=== PATIENT | female | born 1965 | race Caucasian/White ===

== ENCOUNTER → 2016-03-09 | Outpatient (CLI) | payer BC ==
[~2016-03-09] MED LIST: ALBU1.257 NEB; AZEL0.15 NAE; CEPH500C2 PO; CETI10TA84 PO; CLR10 PO; COLE625T PO; CYAN3INJ SC; CYNI1000 IM; CZR50 PO; DICY20TA35 PO; ERGO1CAP35 PO; ERGO500011 PO; FERR1TAB23 PO; FERR325T5 PO; FLUT0.0529 NAE; FLUT0.15 NAE; IBUP-1428 PO; IMT100 PO; LOSA50TA6 PO; LXP/20 PO; MOME100A INH; MOME200A INH; MONT1TAB3 PO; MONT1TAB5 PO; OMEP40CA41 PO; ONDA4TAB46 PO; PANT40TA PO; POTA20TA13 PO; POTA20TA16 PO; RANI1TAB75 PO; SERT50TA PO; SUMA100T16 PO; TRIATAB3 PO; VNTHFA/IN INH; VTMD PO; WLC625 PO
[2016-03-09 14:17] LABS: BLOOD UREA NITROGEN 11 mg/dl (7-18); BUN/CREATININE RATIO 14.5 (10-20); CALCIUM 8.7 mg/dl (8.5-10.1); CARBON DIOXIDE 29 mmol/L (21-32); CHLORIDE 107 mmol/L (98-107); CREATININE 0.79 mg/dl (0.60-1.20); GLUCOSE 94 mg/dl (70-99); PHOSPHORUS 2.6 mg/dl (2.5-4.9); POTASSIUM 4.2 mmol/L (3.5-5.1); SODIUM 144 mmol/L (136-145)
[2016-03-09 14:25] LABS: FERRITIN 43.2 ng/ml (8.0-388.0); TOTAL IRON BINDING CAPACITY 292 mcg/dl (250-450)
[2016-03-09 15:04] LABS: INFLUENZA A PCR Neg for Influ A (NEG); INFLUENZA B PCR Neg for Influ B (NEG)
== END | disposition home or self-care (01) ==
LOC: C.LABBC 09:45
PROVIDERS: ATTEND Family Medicine
DX: I10 Essential (primary) hypertension (principal); E87.6 Hypokalemia; E55.9 Vitamin D deficiency, unspecified; D50.9 Iron deficiency anemia, unspecified; R50.9 Fever, unspecified; R53.81 Other malaise

== ENCOUNTER 2016-04-30 14:40 | Emergency (ER) | payer OTHER, BC ==
[~2016-04-30] VITALS: Ht 170.2 cm; Wt 84.4 kg
[~2016-04-30 14:40] MED LIST changes: -ALBU1.257 NEB; -AZEL0.15 NAE; -CEPH500C2 PO; -COLE625T PO; -CYNI1000 IM; -CZR50 PO; -DICY20TA35 PO; -ERGO500011 PO; -FERR1TAB23 PO; -FERR325T5 PO; -FLUT0.15 NAE; -IMT100 PO; -LOSA50TA6 PO; -LXP/20 PO; -MOME200A INH; -OMEP40CA41 PO; -POTA20TA13 PO; -POTA20TA16 PO; -RANI1TAB75 PO; -SERT50TA PO; -TRIATAB3 PO; -VNTHFA/IN INH; -VTMD PO
[2016-04-30 14:43] VITALS: TEMP 37.4; Ht 170.2 cm; Wt 84.4 kg
[2016-04-30] MEDS ORDERED: CEPH500C2 PO (15:10)
[2016-04-30] MEDS ORDERED: CYNI1000 IM (15:20)
[2016-04-30] MEDS ORDERED: TRIATAB3 PO (15:20)
[2016-04-30] MEDS ORDERED: VNTHFA/IN INH (15:20)
[2016-04-30] MEDS ORDERED: OMEP40CA41 PO (15:20)
[2016-04-30] MEDS ORDERED: FERR1TAB23 PO (15:20)
[2016-04-30] MEDS ORDERED: POTA20TA13 PO (15:20)
[2016-04-30] MEDS ORDERED: LXP/20 PO (15:20)
[2016-04-30] MEDS ORDERED: CZR50 PO (15:20)
[2016-04-30] MEDS ORDERED: VTMD PO (15:20)
[2016-04-30] MEDS ORDERED: IMT100 PO (15:20)
[2016-04-30 15:35] VITALS: BP 139/97; PULSE 77; O2SAT 95
--- NOTE | 2016-05-03 06:58 | EMERGENCY ROOM VISIT NOTE ---
ED Visit Note First contact with patient: 14:53 Chief Complaint: Right thumb laceration. History of Present Illness: Ms. Houston is a 50-year-old white female who ambulates into the ED complaining of a laceration to the right thumb. Patient reports approximately 24 hours ago she was at work and sustained a laceration from a wire dish rack. She reports she immediately cleaned the wound with soap and water and control bleeding. She reports she originally thought the wound might need cyst is but decided not to come to the hospital. She comes today for some mild increase in pain and some redness around her laceration. The laceration is over the posterior aspect of the thumb over the proximal phalanxes. She describes her pain as a mild achy sensation and stinging sensation. She rates her discomfort 3/10. Her pain is nonradiating. Her pain worsens with palpation and extension of the thumb. She has not identified any alleviating factors related to the pain. She has not taken any medications for pain prior to arrival at the hospital. Associated with her pain she reports she noted a small amount of pus like drainage earlier today and some increasing redness and swelling around the laceration. She denies fevers, chills, sweats, other skin eruptions, other skin color changes, left thumb weakness/numbness/tingling. Review of Systems: As noted above in history of present illness. Past Medical History: Hypertension, asthma, bronchitis, pneumonia, GERD, gallbladder disease. Current Medications: Medications Dose Route/Sig Max Daily Dose Days Date Category Dose Instructions Iron (Ferrous Sulfate) 325 Mg Tab 325 Mg PO DAILY 04/30/16 Reported Cyanocobalamin 1,000 Mcg/Ml Inj 1,000 Mcg IM MONTHLY 04/30/16 Reported Potassium Chloride Er (Potassium Chloride Microencaps) 20 Meq Tab 20 Meq PO BID 04/30/16 Reported Ventolin Hfa (Albuterol) 200 Puffs/91950 Mcg Aers 2 Puffs INH UD PRN 04/30/16 Reported Imitrex (Sumatriptan Succinate) 100 Mg Tab 100 Mg PO UD PRN 04/30/16 Reported TAKE ONLY MD DIRECTS Prilosec (Omeprazole) 40 Mg Cap 40 Mg PO BID PRN 04/30/16 Reported Vitamin D (Ergocalciferol) 50,000 Interunit Cap 50,000 Inter.unit PO WK 04/30/16 Reported TAKE THIS MEDICATION ONCE WEEKLY ON TUESDAY Escitalopram Oxalate 20 Mg Tab 20 Mg PO DAILY 04/30/16 Reported Losartan Potassium 50 Mg Tab 50 Mg PO DAILY 04/30/16 Reported Triamterene/Hctz 37.5-25MG (Triamterene/HCTZ) 1 Tab Tab 1 Tab PO DAILY 04/30/16 Reported Allergies to Medications: Patient denies. Social History: Patient is currently employed; she feels safe in her home environment; she denies tobacco use and admits to alcohol use. Tetanus Immunization Status: 2013. Physical Examination: Vital Signs: Date Time Temp Pulse Resp B/P Pulse Ox O2 Delivery O2 Flow Rate FiO2 04/30/16 15:35 77 14 139/97 95 04/30/16 14:43 37.4 80 18 158/94 94 Room Air GENERAL: 50-year-old female in mild distress due to pain, nontoxic-appearing, afebrile and hemodynamically stable. NEUROLOGICAL: Awake, alert and oriented to person, place and time. Answering questions appropriately and following commands. SKIN: Warm, dry and pink. Right Thumb: Superficial thickness laceration measuring approximately 1.9 cm over the posterior aspect of the thumb involving the interphalangeal joint and proximal phalange. Surrounding the wound is mild erythema and edema consistent with infection. The skin does not appear cellulitic. It is warm to the touch as well as tender to the touch. No lymphangitis. RIGHT THUMB: Please note SKIN above. No gross bony deformity. No tenderness of the MCP joint. Mild tenderness over the interphalangeal joint because of her laceration infection. Full range of motion all movements of the thumb at the MCP and interphalangeal joint. Throughout the rest of the thumb the skin was warm and pink and capillary refill is brisk. She is able to distinguish light sensations through all dermatomes. ED Course: Patient is assessed as noted above. Patient's wound was cleansed with antibacterial soap and covered with bacitracin dressing. Patient was offered pain medications and refused. Patient thumb was placed in a thumb spica splint to reduce the pain with movement. Patient was educated about tonight's findings and instructed on her treatment plan; she verbalizes understanding and agreement with this plan. Clinical Impression: Laceration infection. Superficial wound laceration. Disposition: Patient discharged home in stable condition; prior to departure he was reassessed and subjectively reported she was feeling the same. Plan: Comfort measures, wound care, and worsening signs of infection were discussed with the patient. Patient was prescribed Keflex 500 mg 4 times a day for 10 days. Patient was encouraged to follow-up with Workmen's Compensation or return to the ED for worsening signs of infection, uncontrolled pain or any new/ concerning symptoms.
[2016-08-11] MEDS ORDERED: COLE625T PO (11:22)
[2016-08-11] MEDS ORDERED: LOSA50TA6 PO (11:22)
[2016-08-11] MEDS ORDERED: ERGO1CAP41 PO (11:22)
[2016-08-11] MEDS ORDERED: POTA20TA16 PO (11:22)
[2016-08-11] MEDS ORDERED: AZEL0.15 NAE (11:22)
[2016-08-11] MEDS ORDERED: FLUT0.15 NAE (11:22)
[2016-08-11] MEDS ORDERED: ALBU1.257 NEB (11:22)
[2016-08-11] MEDS ORDERED: RANI1TAB75 PO (11:22)
[2016-08-11] MEDS ORDERED: MOME200A INH (11:22)
[2016-08-11] MEDS ORDERED: VNTHFA/IN INH (11:22)
[2016-08-11] MEDS ORDERED: SERT50TA PO (11:22)
[2016-08-11] MEDS ORDERED: OMEP40CA41 PO (11:22)
[2016-08-11] MEDS ORDERED: FERR325T5 PO (11:22)
== END 2016-04-30 15:45 | disposition home or self-care (01) ==
LOC: C.EDB 14:41 → C.EDD 15:45
DX: S61.011A Laceration without foreign body of right thumb without damage to nail, initial encounter (principal); L08.9 Local infection of the skin and subcutaneous tissue, unspecified; W26.8XXA Contact with other sharp object(s), not elsewhere classified, initial encounter; I10 Essential (primary) hypertension; J45.909 Unspecified asthma, uncomplicated; Z87.01 Personal history of pneumonia (recurrent)

== ENCOUNTER → 2016-06-08 | Outpatient (CLI) | payer BC ==
[~2016-06-08] MED LIST changes: +ALBU1.257 NEB; +AZEL0.15 NAE; -CETI10TA84 PO; -CLR10 PO; +COLE625T PO; -CYAN3INJ SC; +CYNI1000 IM; +CZR50 PO; +DICY20TA35 PO; -ERGO1CAP35 PO; +ERGO500011 PO; +FERR1TAB23 PO; +FERR325T5 PO; -FLUT0.0529 NAE; +FLUT0.15 NAE; -IBUP-1428 PO; +IMT100 PO; +LOSA50TA6 PO; +LXP/20 PO; -MOME100A INH; +MOME200A INH; -MONT1TAB3 PO; -MONT1TAB5 PO; +OMEP40CA41 PO; -ONDA4TAB46 PO; -PANT40TA PO; +POTA20TA13 PO; +POTA20TA16 PO; +RANI1TAB75 PO; +SERT50TA PO; -SUMA100T16 PO; +TRIATAB3 PO; +VNTHFA/IN INH; +VTMD PO; -WLC625 PO
--- NOTE | 2016-06-08 12:17 | MAMMOGRAPHY REPORT ---
BILATERAL DIGITAL DIAGNOSTIC MAMMOGRAM TOMOSYNTHESIS WITH CAD AND TARGETED BILATERAL ULTRASOUND: 06/08 CLINICAL HISTORY: 50-year-old woman presents for follow-up in both breasts for probably benign ingrid s seen bilaterally. She is status post ultrasound-guided core needle biopsy of the dominant mass in the left breast which yielded a benign fibroadenoma. TECHNIQUE: Bilateral breast tomosynthesis in addition to standard 2D mammography was performed. Curr ent study was also evaluated with a Computer Aided Detection (CAD) system. COMPARISON: Comparison is made to exams dated: 11/17/2015 ultrasound, 11/17/2015 mammogram, 03/27/2015 mammogram, 03/27/2015 ultrasound biopsy, 03/14/2015 ultrasound, and 03/14/2015 mammogram - [facility]. BREAST COMPOSITION: The tissue of both breasts is heterogeneously dense, which may obscure small ma sses. FINDINGS: The parenchymal pattern is similar to prior exams. There are stable masses within each br east. There is a coarse benign popcorn calcification in the medial left breast. The dominant mass in the 12:00 left breast is stable in size measuring 17 x 15 x 11 mm, and contains an internal ribbo n-shaped metallic biopsy marker. The dominant mass in the upper outer quadrant of the right breast is best visualized on the tomosynthesis images measuring 12 x 15 x 14 mm, and has not significant ch anged in size comparing to the 03/14/2015 mammograms. No suspicious spiculated or irregular mass, a rchitectural distortion or cluster of suspicious microcalcifications is seen. Targeted ultrasound was performed in each breast with particular attention to the lateral left breas t, 2:30, 12:30, 9:00 and 10:00 axes of the right breast. In the right 12:30 breast, 2 cm from the n ipple, there is a mixed echogenicity parallel solid appearing mass measuring approximately 7.2 x 2.4 x 4.4 mm. In the 2:30 right breast, 3-4 cm from the nipple, there is a lobulated hypoechoic solid- appearing mass measuring 5.3 x 3.7 x 4.6 mm. In the 9:00 right breast, 2 cm from the nipple, anothe r lobulated circumscribed solid mass measures 4.9 x 3.3 x 6.3 mm. A hypoechoic solid mass in the 10 :00 right breast, 1 cm from the nipple, measures 12.1 x 8.9 x 16.3 mm. None of these masses have si gnificantly changed in size comparing to the prior ultrasound dated 11/17/2015. In the left 12:00 b reast, a hypoechoic solid mass with internal metallic biopsy marker is again identified, representin g the biopsy-proven fibroadenoma. In the 1:00 left breast, 2 cm from the nipple, there is a lobulat ed hypoechoic ovoid solid mass measuring 4.8 x 4.2 x 8.2 mm. A morphologically normal intramammary lymph node is seen in the 1:00 left breast approximately 12 cm from the nipple. IMPRESSION: ACR-BI-RADS CATEGORY 3: PROBABLY BENIGN, TARGETED ULTRASOUND ACR-BI-RADS CATEGORY 3: RI OBABLY BENIGN 1. There are multiple masses in the breasts which correlate with probable fibroadenomata on ultraso und. A morphologically normal intramammary lymph node is seen in the 1:00 far posterior left breast . All of the masses are stable mammographically dating back to 03/14/2015, therefore likely benign. However, another 12 month follow-up evaluation including bilateral diagnostic mammography and repe at targeted ultrasound is recommended to ensure at least 2 years of stability to confirm benignity. These results and recommendations were discussed with the patient at the time of the exam. She tent atively scheduled a follow-up appointment prior to leaving our department. Approximately 10% of breast cancers are not detected with mammography. A negative mammographic repor t should not delay biopsy if a clinically suggestive mass is present. Magda Ervin M.D. ay/:06/08/2016 09:15:53 Pharmaceutical Service Representative: Teresita Lopez, [facility] letter sent: Follow Up Recommended 3 BI-RADS Code: ACR-BI-RADS Category 3: Probably Benign Ultrasound BI-RADS: ACR-BI-RADS Category 3: P robably Benign
== END | disposition home or self-care (01) ==
LOC: C.MAMM 08:28
PROVIDERS: ATTEND Family Medicine
DX: N63 Unspecified lump in breast (principal)

== ENCOUNTER 2016-06-28 12:25 | Emergency (ER) | payer BC, OTHER ==
[~2016-06-28] VITALS: Ht 170.2 cm; Wt 82.0 kg
[~2016-06-28 12:25] MED LIST changes: -ALBU1.257 NEB; -AZEL0.15 NAE; -COLE625T PO; -DICY20TA35 PO; -ERGO500011 PO; -FERR325T5 PO; -FLUT0.15 NAE; -LOSA50TA6 PO; -MOME200A INH; -POTA20TA16 PO; -RANI1TAB75 PO; -SERT50TA PO
[2016-06-28 12:36] VITALS: TEMP 36.5; Ht 170.2 cm; Wt 82.0 kg
[2016-06-28] MEDS ORDERED: SODIUM CHLORIDE 0.9% 1000ML 1,000 ML IV ONE (12:45)
[2016-06-28] MEDS ORDERED: DICYCLOMINE HCL 10 MG CAP PO ONE (12:45)
--- NOTE | 2016-06-28 13:09 | EMERGENCY ROOM VISIT NOTE ---
History Report prepared by Luther: Maribell Palmer Under the Supervision of: Dr. Barerra Leger M.D. First contact with patient: 12:40 Chief Complaint: ABDOMINAL PAIN Stated Complaint: SEVERE STOMACH PAIN WITH BACK PAIN History of Present Illness The patient is a 50 year old female who presents to the Emergency Room with complaints of persistent diffuse abdominal pain that began this morning. She currently rates her discomfort as a 10/10 in severity. The patient states that she woke up with diffuse abdominal pain. She states that she has had pain like this in the past. The patient describes her discomfort as a contraction pain. She states that she was evaluated in the hospital for her pain. The patient notes a history of a cholecystectomy, hysterectomy, and a hiatal hernia repair. She states that she drinks alcohol occasionally, but denies any tobacco use. The patient denies any melena or hematochezia. She denies any history of diverticulitis or Crohn's Disease. The patient notes a history of anemia. Source of History: patient Onset: this morning Position: abdomen (diffuse) Symptom Intensity: 10/10 Quality: other (contraction) Timing: other (persistent) Review of Systems All systems have been listed, reviewed, and are negative other than those previously mentioned. Please see Additional Medical History Sheet. Past Medical & Surgical Medical Problems: (1) Abdominal pain (2) Anemia (3) Anxiety State Nos (4) Cholelithiases (5) Contusion of leg (6) COPD (chronic obstructive pulmonary disease) (7) COPD exacerbation (8) COPD exacerbation (9) Esophageal Reflux (10) Headache (11) Hypertension Nos (12) Hypokalemia (13) Hypomagnesemia (14) Left sided abdominal pain (15) Leiomyoma of uterus (16) Menorrhagia (17) Migraine Unspecified W/O Intractable Migraine (18) Spontaneous bruising Surgical Problems: (1) Hiatal hernia (2) Tubal Ligation Status Family History Cancer Social History Smoking Status: Current Every Day Smoker Alcohol Use: occasionally Marital Status: single Housing Status: lives alone Occupation Status: employed Current/Historical Medications Scheduled Cyanocobalamin (Cyanocobalamin), 1,000 MCG IM MONTHLY Ergocalciferol (Vitamin D), 50,000 INTER.UNIT PO WK Escitalopram Oxalate (Escitalopram Oxalate), 20 MG PO DAILY Ferrous Sulfate (Iron), 325 MG PO DAILY Losartan Potassium (Losartan Potassium), 50 MG PO DAILY Potassium Chloride Microencaps (Potassium Chloride Er), 20 MEQ PO BID Triamterene/Hctz (Triamterene/Hctz 37.5-25MG), 1 TAB PO DAILY Scheduled PRN Albuterol Hfa (Ventolin Hfa), 2 PUFFS INH UD PRN for SOB/Wheezing Omeprazole (Prilosec), 40 MG PO BID PRN for Aid Reflux Sumatriptan Succinate (Imitrex), 100 MG PO UD PRN for Migraine Allergies Coded Allergies: Molds & Smuts (Verified Allergy, Unknown, "+ SKIN TEST", 06/28/16) Physical Exam Vital Signs Date Time Temp Pulse Resp B/P Pulse Ox O2 Delivery O2 Flow Rate FiO2 06/28/16 15:01 72 122/95 98 06/28/16 14:12 69 06/28/16 13:56 74 16 148/99 100 Room Air 06/28/16 13:41 74 146/99 100 Room Air 06/28/16 13:21 98 Room Air 06/28/16 12:36 36.5 66 22 144/42 95 Room Air Physical Exam GENERAL: Patient awake, alert, oriented x 3. Patient follows commands. Patient appears to be in marked distress, writhing on the bed in pain. Patient does not appear toxic. Patient is adequately hydrated and well-nourished. SKIN: No erythema, pallor, cyanosis or rash HEENT: Normal head, pupils equal, reactive to light and accommodation. Neck: Without adenopathy, no neck vein distention. LUNGS: Clear to auscultation. No wheezes, no rales, no rhonchi. HEART: No murmurs. No gallops. No rubs ABDOMEN: Generalized tenderness, no point tenderness, no rebound, no guarding. No masses, no rebound, no hepatomegaly or splenomegaly. EXTREMITIES: No signs of trauma. No pedal or pretibial edema. No calf or thigh tenderness. NEUROLOGIC: Cranial nerves II-XII within normal limits. No gross motor sensory function deficits. Medical Decision & Procedures Laboratory Results 06/28/16 12:51 Red Blood Count 4.21, Mean Corpuscular Volume 95.0, Mean Corpuscular Hemoglobin 30.6, Mean Corpuscular Hemoglobin Concent 32.3, Mean Platelet Volume 10.3, Neutrophils (%) (Auto) 56.0, Lymphocytes (%) (Auto) 34.5, Monocytes (%) (Auto) 8.0, Eosinophils (%) (Auto) 1.1, Basophils (%) (Auto) 0.3, Neutrophils # (Auto) 4.90, Lymphocytes # (Auto) 3.02, Monocytes # (Auto) 0.70, Eosinophils # (Auto) 0.10, Basophils # (Auto) 0.03 06/28/16 12:51 Test 06/28/16 00:00 06/28/16 12:51 06/28/16 14:35 Urine Test NEG (NEG) White Blood Count 8.76 K/uL (4.8-10.8) Red Blood Count 4.21 M/uL (4.2-5.4) Hemoglobin 12.9 g/dL (12.0-16.0) Hematocrit 40.0 % (37-47) Mean Corpuscular Volume 95.0 fL (80-100) Mean Corpuscular Hemoglobin 30.6 pg (25-34) Mean Corpuscular Hemoglobin Concent 32.3 g/dl (32-36) Platelet Count 352 K/uL (130-400) Mean Platelet Volume 10.3 fL (7.4-10.4) Neutrophils (%) (Auto) 56.0 % Lymphocytes (%) (Auto) 34.5 % Monocytes (%) (Auto) 8.0 % Eosinophils (%) (Auto) 1.1 % Basophils (%) (Auto) 0.3 % Neutrophils # (Auto) 4.90 K/uL (1.4-6.5) Lymphocytes # (Auto) 3.02 K/uL (1.2-3.4) Monocytes # (Auto) 0.70 K/uL (0.11-0.59) Eosinophils # (Auto) 0.10 K/uL (0-0.5) Basophils # (Auto) 0.03 K/uL (0-0.2) RDW Standard Deviation 44.9 fL (36.4-46.3) RDW Coefficient of Variation 13.0 % (11.5-14.5) Immature Granulocyte % (Auto) 0.1 % Immature Granulocyte # (Auto) 0.01 K/uL (0.00-0.02) Anion Gap 6.0 mmol/L (3-11) Est Creatinine Clear Calc Drug Dose 82.4 ml/min Estimated GFR () 87.6 Estimated GFR (Non- 75.5 BUN/Creatinine Ratio 12.9 (10-20) Calcium Level 8.7 mg/dl (8.5-10.1) Total Bilirubin 0.2 mg/dl (0.2-1) Aspartate Amino Transf (AST/SGOT) 53 U/L (15-37) Alanine Aminotransferase (ALT/SGPT) 28 U/L (12-78) Alkaline Phosphatase 81 U/L (45-117) Total Protein 7.0 gm/dl (6.4-8.2) Albumin 3.4 gm/dl (3.4-5.0) Globulin 3.6 gm/dl (2.5-4.0) Albumin/Globulin Ratio 0.9 (0.9-2) Lipase 417 U/L (73-393) Chemistry Specimen Hemolysis Urine Color YELLOW Urine Appearance CLEAR (CLEAR) Urine pH 6.5 (4.5-7.5) Urine Specific [place] 1.016 (1.000-1.030) Urine Protein NEG (NEG) Urine Glucose (UA) NEG (NEG) Urine Ketones NEG (NEG) Urine Occult Blood NEG (NEG) Urine Nitrite NEG (NEG) Urine Bilirubin NEG (NEG) Urine Urobilinogen NEG (NEG) Urine Leukocyte Esterase NEG (NEG) Laboratory results as stated above per my review. Medications Administered Medications (Trade) Dose Ordered Sig/Robinson Route Start Time Stop Time Status Last Admin Dose Admin Sodium Chloride (Nss 1000ml) 1,000 ml @ 1,000 mls/hr Q1H ONCE IV 06/28/16 12:45 06/28/16 13:44 DC 06/28/16 12:45 1,000 MLS/HR Dicyclomine HCl (Bentyl Cap) 20 mg NOW ONCE PO 06/28/16 12:45 06/28/16 12:51 DC 06/28/16 13:02 20 MG ECG Indication: abdominal pain Rate (beats per minute): 62 Rhythm: normal sinus Findings: no acute ischemic change, no ectopy ED Course 1241: Past medical records reviewed. The patient was evaluated in room A9B. A complete history and physical examination was performed. 1245: Ordered Bentyl Cap 20 mg PO, Sodium Chloride 1000 ml @ 1000 mls/hr IV. 1430: I reevaluated the patient and she is feeling much better. I discussed all the exam findings with her and I discussed the treatment plan. She verbalized complete understanding and agreement. She is ready to go home. 1525 patient was reexamined and felt significantly better. She has minimal tenderness of her upper abdomen. She is safe to return home. Medical Decision Nurses notes reviewed. Medical history sheet reviewed. Differential diagnosis includes but is not limited to: intestinal spasm, bowel obstruction, pancreatitis, peptic/gastric ulcer disease, ulcerative colitis, Crohn's disease. The patient experienced similar type cramping abdominal pain in the past. Multiple labs and urinalysis were evaluated. The patient was given 20 mg of oral Bentyl. The pain resolved. She was reexamined prior to discharge and had only slight soreness of her abdomen abdomen. The patient's lipase was slightly elevated but I do not believe this represents pancreatitis. The patient will be given a prescription for Bentyl to take at home as needed. Impression Primary Impression: Spasm of bowel Scribe Attestation The scribe's documentation has been prepared under my direction and personally reviewed by me in its entirety. I confirm that the note above accurately reflects all work, treatment, procedures, and medical decision making performed by me. Departure Information Dispostion Home / Self-Care Prescriptions Dicyclomine Hcl (BENTYL) 20 Mg Tab 20 MG PO Q6H Y for abdominal pain, #15 TAB Prov: Barrera Leger M.D. 06/28/16 Referrals Claudio Rueda D.O.Int.Med. (PCP) Patient Instructions My [facility] Additional Instructions 20 mg of Bentyl every 6 hours as needed for abdominal pain. Continue all of your current medications as prescribed. Follow-up with your family physician within the next 2 weeks. Return here sooner if pain is getting much worse.
[2016-06-28 13:21] VITALS: O2SAT 98
[2016-06-28 13:24] LABS: BASO % 0.3 %; BASO ABS # 0.03 K/uL (0-0.2); COMPLETE YES; EOS % 1.1 %; IG% 0.1 %; LYMPH % 34.5 %; LYMPH ABS # 3.02 K/uL (1.2-3.4); MEAN CORPUSCULAR HEMOGLOBIN 30.6 pg (25-34); MEAN CORPUSCULAR HGB CONC 32.3 g/dl (32-36); MEAN PLATELET VOLUME 10.3 fL (7.4-10.4); PLATELET COUNT 352 K/uL (130-400); RED BLOOD COUNT 4.21 M/uL (4.2-5.4); WHITE BLOOD COUNT 8.76 K/uL (4.8-10.8)
[2016-06-28 14:01] LABS: ALB/GLOB RATIO 0.9 (0.9-2); BUN/CREATININE RATIO 12.9 (10-20); CALCIUM 8.7 mg/dl (8.5-10.1); CREATININE 0.88 mg/dl (0.60-1.20); POTASSIUM 3.8 mmol/L (3.5-5.1)
[2016-06-28 15:02] LABS: URINE APPEARANCE CLEAR (CLEAR); URINE BILIRUBIN NEG (NEG); URINE COLOR YELLOW; URINE NITRITE NEG (NEG); URINE PH 6.5 (4.5-7.5); URINE SPECIFIC GRAVITY 1.016 (1.000-1.030); UROBILINOGEN NEG (NEG); ZZUR CULT IF INDIC CLEAN CATCH NO
[2016-06-28 15:04] LABS: PREG INTERNAL NEGATIVE QC NEG CLEAR BACKGROUND; PREG INTERNAL POSITIVE QC POS CONTROL LINE
[2016-06-28 15:19] LABS: MANUAL MICROSCOPIC REQUIRED? NO; REVIEW REQ? NO
[2016-06-28] MEDS ORDERED: DICY20TA35 PO (15:32)
[2016-06-28 15:38] VITALS: BP 142/88; PULSE 70; O2SAT 95
[2016-08-11] MEDS ORDERED: FLUT0.15 NAE (11:22)
[2016-08-11] MEDS ORDERED: ERGO500011 PO (11:22)
[2016-08-11] MEDS ORDERED: LOSA50TA6 PO (11:22)
[2016-08-11] MEDS ORDERED: AZEL0.15 NAE (11:22)
[2016-08-11] MEDS ORDERED: RANI1TAB75 PO (11:22)
[2016-08-11] MEDS ORDERED: FERR325T5 PO (11:22)
[2016-08-11] MEDS ORDERED: SERT50TA PO (11:22)
[2016-08-11] MEDS ORDERED: MOME200A INH (11:22)
[2016-08-11] MEDS ORDERED: POTA20TA16 PO (11:22)
[2016-08-11] MEDS ORDERED: COLE625T PO (11:22)
[2016-08-11] MEDS ORDERED: ALBU1.257 NEB (11:22)
[2016-08-11] MEDS ORDERED: OMEP40CA41 PO (11:22)
[2016-08-11] MEDS ORDERED: VNTHFA/IN INH (11:22)
== END 2016-06-28 15:40 | disposition home or self-care (01) ==
LOC: C.EDB 12:27 → C.EDA 15:40
DX: R25.2 Cramp and spasm (principal); D64.9 Anemia, unspecified; F41.9 Anxiety disorder, unspecified; J44.9 Chronic obstructive pulmonary disease, unspecified; K21.9 Gastro-esophageal reflux disease without esophagitis; I10 Essential (primary) hypertension; E87.6 Hypokalemia; E83.42 Hypomagnesemia; F17.200 Nicotine dependence, unspecified, uncomplicated; Z90.710 Acquired absence of both cervix and uterus

== ENCOUNTER → 2016-08-19 | Day surgery (SDC) | payer BC ==
[2016-08-11 11:10] VITALS: Ht 170.2 cm; Wt 86.4 kg
[~2016-08-19] VITALS: Ht 170.2 cm; Wt 86.4 kg
[~2016-08-19] MED LIST changes: +ALBU1.257 NEB; +AZEL0.15 NAE; +COLE625T PO; -CYNI1000 IM; -CZR50 PO; +ERGO500011 PO; -FERR1TAB23 PO; +FERR325T5 PO; +FLUT0.15 NAE; +LOSA50TA6 PO; -LXP/20 PO; +MOME200A INH; -POTA20TA13 PO; +POTA20TA16 PO; +RANI1TAB75 PO; +SERT50TA PO; -VTMD PO
[2016-08-19 11:40] VITALS: BP 140/87; PULSE 67; O2SAT 97
--- NOTE | 2016-08-19 16:40 | Procedure Note ---
Breath Hydrogen Test Interpretation Hydrogen breath test for suspected bacterial overgrowth> Lactulose 10 gm Time Breath Hydrogen CO2 0 0 2.2 20 0 2.3 40 4 2.5 60 4 3.1 80 5 2.4 100 11 2.6 120 8 2.6 140 8 2.7 160 18 2.5 180 10 2.3 Impression: negative hydrogen breath test for evaluation of bacterial overgrowth
== END | disposition home or self-care (01) ==
LOC: C.GI 08:21
PROVIDERS: ATTEND Internal Medicine Gastroenterology
DX: R10.11 Right upper quadrant pain (principal)

== ENCOUNTER → 2017-02-09 | Outpatient (CLI) | payer BC ==
--- NOTE | 2017-02-09 08:58 | DIAGNOSTIC IMAGING REPORT ---
PA CHEST RADIOGRAPH AND UPRIGHT AND SUPINE AP RADIOGRAPHS OF THE ABDOMEN CLINICAL HISTORY: Epigastric pain. COMPARISON STUDY: Chest radiograph November 24, 2014 and February 29, [address] of the abdomen and pelvis February 26, 2015. FINDINGS: No pneumothorax or pleural effusion is present. There is no consolidation. Bilateral upper lobe interstitial thickening, distortion and suspected emphysema is unchanged. Cardiomediastinal silhouette is normal. There is no free air. The bowel gas pattern is normal. Pelvic calcifications likely reflect phleboliths. IMPRESSION: 1. No free air or evidence of bowel obstruction. 2. No acute cardiopulmonary findings. 3. No change in appearance of the chest with upper lobe interstitial thickening, distortion and suspected emphysema. Electronically signed by: Viral Lee M.D. 02/09/2017 8:57 AM Dictated Date/Time: 02/09/2017 8:54 AM
== END | disposition home or self-care (01) ==
LOC: C.RAD1850 08:31
PROVIDERS: ATTEND Internal Medicine
DX: R10.13 Epigastric pain (principal)

== ENCOUNTER → 2017-02-10 | Outpatient (CLI) | payer BC | END | disposition home or self-care (01) | LOC: C.LABSPEC 15:05 | PROVIDERS: ATTEND Internal Medicine | DX: R10.13 Epigastric pain (principal) ==

== ENCOUNTER → 2017-05-02 | Outpatient (CLI) | payer BC ==
--- NOTE | 2017-05-02 18:37 | DIAGNOSTIC IMAGING REPORT ---
L-SPINE MIN 4 VIEWS ROUTINE CLINICAL HISTORY: S39.92XA Back injuryFell on the ice 40 days ago still have pain COMPARISON STUDY: No previous studies for comparison. FINDINGS: No fractures or dislocations are visualized. IMPRESSION: No fractures or dislocations identified. Electronically signed by: Blaine Li M.D. 05/02/2017 6:36 PM Dictated Date/Time: 05/02/2017 6:36 PM
--- NOTE | 2017-05-02 18:38 | DIAGNOSTIC IMAGING REPORT ---
SACRUM COCCYX MIN 2 VIEWS CLINICAL HISTORY: S39.92XA Back injuryFell on the ice 40 days ago still have pain COMPARISON STUDY: No previous studies for comparison. FINDINGS: There is no SI joint diastases. There is no symphysis diastases. No fractures are visualized. IMPRESSION: No fractures identified. Electronically signed by: Blaine Li M.D. 05/02/2017 6:37 PM Dictated Date/Time: 05/02/2017 6:36 PM
== END | disposition home or self-care (01) ==
LOC: C.RAD 17:56
PROVIDERS: ATTEND Internal Medicine
DX: S39.92XA Unspecified injury of lower back, initial encounter (principal); X58.XXXA Exposure to other specified factors, initial encounter

== ENCOUNTER 2017-05-11 17:32 | Emergency (ER) | payer BC ==
[~2017-05-11] VITALS: Ht 170.2 cm; Wt 96.1 kg
[2017-05-11 17:40] VITALS: TEMP 36.9; Ht 170.2 cm; Wt 96.1 kg
[2017-05-11] MEDS ORDERED: CYCLOBENZAPRINE HCL 10 MG TAB PO STA (17:57)
[2017-05-11] MEDS ORDERED: OXYCODONE/ACETAMINOPHEN 5-325 TAB PO STA (17:57)
[2017-05-11] MEDS ORDERED: KETOROLAC TROMETHAMINE 60 MG/2 ML VIAL IM ONE (18:00)
[2017-05-11] MEDS ORDERED: IBUP-1451 PO (18:01)
[2017-05-11] MEDS ORDERED: ACET-1311 PO (18:01)
--- NOTE | 2017-05-11 18:03 | EMERGENCY ROOM VISIT NOTE ---
History First contact with patient: 17:45 Chief Complaint: BACK PAIN Stated Complaint: FALL, LOWER BACK PAIN, BRUISING, DIFFICULTY WALKIN History of Present Illness The patient is a 51 year old female who presents to the Emergency Room with complaints of low back pain down the left leg. Patient had a fall approximately 5-6 weeks ago. She does not remember how she landed. She has had severe pain in the back since. She has tried ibuprofen and Tylenol with minimal relief. The patient had x-rays done. She was told that nothing was acutely wrong. She denies any urinary or bowel incontinence. She is having some numbness and tingling down the left leg. She denies any weakness. She denies any other injuries. Review of Systems 6 system review negative. Please see pertinent positives in the history of present illness section. Past Medical/Surgical History Medical Problems: (1) Abdominal pain (2) Anemia (3) Anxiety State Nos (4) Cholelithiases (5) Contusion of leg (6) COPD (chronic obstructive pulmonary disease) (7) COPD exacerbation (8) COPD exacerbation (9) Esophageal Reflux (10) Headache (11) Hypertension Nos (12) Hypokalemia (13) Hypomagnesemia (14) Left sided abdominal pain (15) Leiomyoma of uterus (16) Menorrhagia (17) Migraine Unspecified W/O Intractable Migraine (18) Spontaneous bruising Surgical Problems: (1) Hiatal hernia (2) Tubal Ligation Status Family History Cancer Social History Smoking Status: Current Every Day Smoker Alcohol Use: occasionally Marital Status: single Housing Status: lives alone Occupation Status: employed Current/Historical Medications Scheduled Cyclobenzaprine Hcl (Flexeril), 10 MG PO TID Lidocaine (Lidocaine), 1 PATCH TD DAILY Methylprednisolone (Medrol Dosepak), 0 PO DAILY Scheduled PRN Acetaminophen (Tylenol), 650 MG PO DIRECTED PRN for Pain Ibuprofen Tab (Motrin), 800 MG PO Q8H PRN for Pain Oxycodone/Acetaminophen 5MG/325MG (Percocet 5MG/325MG), 1 TAB PO Q4H PRN for Pain Physical Exam Vital Signs Date Time Temp Pulse Resp B/P (MAP) Pulse Ox O2 Delivery O2 Flow Rate FiO2 05/11/17 20:14 185/112 05/11/17 19:30 68 16 205/111 95 Room Air 05/11/17 17:40 36.9 86 18 188/130 98 Room Air Physical Exam VITALS: Vitals are noted on the nurse's note and reviewed by myself. Vital signs stable. GENERAL: 51-year-old female, in no acute distress, nondiaphoretic, well- developed well-nourished. SKIN: The skin was without rashes, erythema, edema, or bruising. HEAD: Normocephalic atraumatic. MUSCULOSKELETAL: Tenderness to palpation over the lumbar spinous processes and sacral area. Mild tenderness over the SI joints bilaterally. Pain with left straight leg test. Sensation in the lower extremities is intact bilaterally. Strength 5/5 throughout. NEURO: Patient was alert and oriented to person place and time. Normal sensation to touch. No focal neurological deficits. Medical Decision & Procedures ER Provider Diagnostic Interpretation: CT lumbar spine IMPRESSION: 1. There is no evidence of fracture or malalignment involving the lumbar spine. 2. Nonobstructing left renal calculus. Dictated: 05/11/2017 6:53 PM Transcribed: 05/11/2017 7:55 PM [email or web address] Electronically signed by: Paul Alaniz M.D. 05/11/2017 7:58 PM Dictated Date/Time: 05/11/2017 6:53 PM The status of this report is Signed. Draft = Not yet reviewed or approved by Radiologist. Signed = Reviewed and approved by Radiologist. Medications Administered Medications (Trade) Dose Ordered Sig/Robinson Route Start Time Stop Time Status Last Admin Dose Admin Oxycodone/ Acetaminophen (Percocet 5-325mg Tab) 1 tab NOW STAT PO 05/11/17 17:57 05/11/17 17:59 DC 05/11/17 18:16 1 TAB Ketorolac Tromethamine (Toradol Inj) 60 mg ONE ONCE IM 05/11/17 18:00 05/11/17 18:01 DC 05/11/17 18:15 60 MG Cyclobenzaprine HCl (Flexeril Tab) 10 mg NOW STAT PO 05/11/17 17:57 05/11/17 17:59 DC 05/11/17 18:14 10 MG Losartan Potassium (coZAAR TAB) 50 mg ONE STAT PO 05/11/17 20:05 05/11/17 20:06 DC 05/11/17 20:15 50 MG ED Course The patient was seen and examined She was medicated with Percocet, Flexeril and Toradol Imaging was performed and reviewed The patient was reassessed. We discussed her results. She voiced understanding. Vital signs were taken. Her blood pressure was elevated. She was given 1 dose of losartan 50 mg Discharge instructions were reviewed, and she was discharged in good condition Medical Decision Differential diagnosis: Spine fracture, ligamentous injury, subluxation, spondylolisthesis, spondylosis, herniated disc, contusion, muscle spasm this patient is a 51-year-old female that presents to the emergency department complaining of ongoing back pain down the left leg resulting from a fall 6 weeks ago. She is neurovascularly intact. I cannot appreciate any weakness. There were no fractures of the lumbar spine. She does have a small posterior disc bulge at L4-L5. The patient had good symptomatic relief from the emergency department. I believe she is stable to be discharged home. She will be given a short course of narcotics, muscle relaxants and steroids. She is comfortable with this plan. She will follow-up with her primary care physician within 1 week for recheck, and agrees to return to the emergency department with any new, worsening or concerning symptoms This chart was completed in part utilizing [employer] Speech Voice Recognition software. Attempts were made to minimize the grammatical errors, random word insertions, pronoun errors and incomplete sentences. Any formal questions or concerns about the content, text or information contained within the body of this dictation should be directly addressed to the provider for clarification. Medication Reconcilliation Current Medication List: was personally reviewed by me Blood Pressure Screening Patient's blood pressure: Elevated blood pressure Blood pressure disposition: Referred to PCP Impression Primary Impression: Back pain Departure Information Dispostion Home / Self-Care Condition GOOD Prescriptions Lidocaine (LIDOCAINE) 5 % Pad 1 PATCH TD DAILY, #10 PATCH Prov: Bonita Cabrera PA-C 05/11/17 Cyclobenzaprine Hcl (FLEXERIL) 10 Mg Tab 10 MG PO TID for Muscle Spasms, #20 TAB Prov: Bonita Cabrera PA-C 05/11/17 Methylprednisolone (MEDROL DOSEPAK) 4 Mg Neto 0 PO DAILY, #1 PKT Prov: Bonita Cabrera PA-C 05/11/17 Oxycodone/Acetaminophen 5MG/325MG (PERCOCET 5MG/325MG) Tab 1 TAB PO Q4H Y for Pain, #15 TAB For Initial Treatment Prov: Bonita Cabrera PA-C 05/11/17 Referrals Walter Sutton M.D. (PCP) Patient Instructions My [facility] Additional Instructions Please rest. No strenuous activity while your back is still painful. Please use lidocaine patch to the area daily Ibuprofen 600 mg every 6 hours Percocet 1-2 tabs every 4 hours for severe pain. Do not drink alcohol or drive while taking this medication. This may be taken with ibuprofen, but avoid Tylenol. Please take the entire course of steroids Flexeril every 8 hours as needed for muscle spasms. Please do not drink alcohol or drive or taking this medication. Ice over the lower back over the next 48 hours. Lying on a hard surface may help with the pain. No strenuous activity until your back is feeling better Return to the emergency department if you have any of the following symptoms: -Problems with urination -Weakness in your legs -Chest pain -Shortness of breath -Worsening pain Please follow-up with your primary care physician within 1 week
[2017-05-11 19:30] VITALS: PULSE 68; O2SAT 95
--- NOTE | 2017-05-11 19:55 | DIAGNOSTIC IMAGING REPORT ---
CT SCAN OF THE LUMBAR SPINE WITHOUT IV CONTRAST CLINICAL HISTORY: Low back pain. Left lower extremity radiculopathy. Fall several weeks ago. COMPARISON STUDY: Radiographs of lumbar spine dated 05/02/2017. Abdominal CT dated 02/26/2015. TECHNIQUE: CT scan of the lumbar spine is performed from the lower thoracic spine to the sacrum. Images are reviewed in the axial, sagittal, and coronal planes. IV contrast was not administered for this examination. A dose lowering technique was utilized adhering to the principles of ALARA. CT DOSE: 783.67 mGy.cm. FINDINGS: The skeletal structures are well mineralized. There is no evidence of fracture or malalignment involving the lumbar spine. Vertebral body height and alignment are maintained throughout the lumbar spine. The transverse and spinous processes are intact. There is no evidence of spondylolysis. No lytic or blastic lesion is seen. The disc spaces appear maintained. There is no CT evidence of large disc herniation. A posterior disc bulge is seen at L4-L5. The visualized sacrum and bony pelvis appear intact. The paraspinous soft tissues are normal in appearance. There is a 4 mm nonobstructing calculus in the lower pole of the left kidney. Mild atherosclerotic calcification is noted in the abdominal aorta. A left adrenal adenoma is partially visualized and unchanged. IMPRESSION: 1. There is no evidence of fracture or malalignment involving the lumbar spine. 2. Nonobstructing left renal calculus. Dictated: 05/11/2017 6:53 PM Transcribed: 05/11/2017 7:55 PM [email or web address] Electronically signed by: Paul Alaniz M.D. 05/11/2017 7:58 PM Dictated Date/Time: 05/11/2017 6:53 PM
[2017-05-11] MEDS ORDERED: LOSARTAN POTASSIUM 50 MG TAB PO STA (20:05)
[2017-05-11] MEDS ORDERED: METH4PAK PO (20:12)
[2017-05-11] MEDS ORDERED: OXYC-57 PO (20:12)
[2017-05-11] MEDS ORDERED: CYCL10TA6 PO (20:12)
[2017-05-11 20:14] VITALS: BP 185/112
[2017-05-11] MEDS ORDERED: LIDO1PAD2 TD (20:18)
== END 2017-05-11 20:29 | disposition home or self-care (01) ==
LOC: C.EDB 17:33 → C.EDD 20:29
DX: M54.5 Low back pain (principal); M79.605 Pain in left leg; J44.9 Chronic obstructive pulmonary disease, unspecified; I10 Essential (primary) hypertension; F17.200 Nicotine dependence, unspecified, uncomplicated; Z80.9 Family history of malignant neoplasm, unspecified

== ENCOUNTER → 2017-06-22 | Outpatient (CLI) | payer BC ==
[~2017-06-22] MED LIST changes: +ACET-1311 PO; -ALBU1.257 NEB; -AZEL0.15 NAE; -COLE625T PO; -ERGO500011 PO; -FERR325T5 PO; -FLUT0.15 NAE; +IBUP-1451 PO; -IMT100 PO; +LIDO1PAD2 TD; -LOSA50TA6 PO; -MOME200A INH; -OMEP40CA41 PO; +OXYC-57 PO; -POTA20TA16 PO; -RANI1TAB75 PO; -SERT50TA PO; -TRIATAB3 PO; -VNTHFA/IN INH
[2017-06-22 10:49] LABS: ALBUMIN 3.7 gm/dl (3.4-5.0); ALT/SGPT 27 U/L (12-78); AST/SGOT 18 U/L (15-37); BLOOD UREA NITROGEN 13 mg/dl (7-18); CALCIUM 9.1 mg/dl (8.5-10.1); CARBON DIOXIDE 29 mmol/L (21-32); CHOLESTEROL 177 mg/dl (0-200); CREATININE 0.88 mg/dl (0.60-1.20); GLUCOSE 102 mg/dl (70-99); POTASSIUM 3.6 mmol/L (3.5-5.1); SODIUM 137 mmol/L (136-145)
[2017-06-22 10:52] LABS: ALKALINE PHOSPHATASE 84 U/L (45-117); LDL CHOLESTEROL CALCULATED 92 mg/dl; TOTAL PROTEIN 7.4 gm/dl (6.4-8.2)
[2017-06-22 11:01] LABS: BASO % 0.4 %; BASO ABS # 0.03 K/uL (0-0.2); EOS % 0.7 %; EOS ABS # 0.06 K/uL (0-0.5); HEMATOCRIT 42.8 % (37-47); HEMOGLOBIN 14.7 g/dL (12.0-16.0); IG# 0.02 K/uL (0.00-0.02); LYMPH % 29.1 %; LYMPH ABS # 2.33 K/uL (1.2-3.4); MEAN CELL VOLUME 93.2 fL (80-100); MEAN CORPUSCULAR HGB CONC 34.3 g/dl (32-36); MEAN PLATELET VOLUME 10.5 fL (7.4-10.4); MONO % 9.7 %; MONO ABS # 0.78 K/uL (0.11-0.59); NEUT % 59.9 %; PLATELET COUNT 376 K/uL (130-400); RED CELL DISTRIBUTION WIDTH CV 12.9 % (11.5-14.5); RED CELL DISTRIBUTION WIDTH SD 43.8 fL (36.4-46.3); WHITE BLOOD COUNT 8.02 K/uL (4.8-10.8)
== END | disposition home or self-care (01) ==
LOC: C.LABBC 08:16
PROVIDERS: ATTEND Physician Assistant
DX: I10 Essential (primary) hypertension (principal); R92.8 Other abnormal and inconclusive findings on diagnostic imaging of breast

== ENCOUNTER 2017-07-17 20:43 | Emergency (ER) | payer BC, OTHER ==
[~2017-07-17] VITALS: Ht 168.9 cm; Wt 94.5 kg
[2017-07-17 20:46] VITALS: TEMP 36.6; Ht 168.9 cm; Wt 94.5 kg
[2017-07-17] MEDS ORDERED: LIDODERM (LIDOCAINE) PATCH 5% TD STA (21:32)
[2017-07-17] MEDS ORDERED: OXYCODONE/ACETAMINOPHEN 5-325 TAB PO STA (21:32)
[2017-07-17] MEDS ORDERED: KETOROLAC TROMETHAMINE 60 MG/2 ML VIAL IM STA (21:32)
[2017-07-17] MEDS ORDERED: ZLF/50 PO (22:18)
[2017-07-17] MEDS ORDERED: TPRSR/50 PO (22:18)
[2017-07-17] MEDS ORDERED: CZR50 PO (22:18)
[2017-07-17] MEDS ORDERED: TRIA37.5 PO (22:18)
[2017-07-17] MEDS ORDERED: PRED20TA PO (22:48)
--- NOTE | 2017-07-17 22:49 | EMERGENCY ROOM VISIT NOTE ---
ED Visit Note First contact with patient: 20:53 CHIEF COMPLAINT: Low back pain HISTORY OF PRESENT ILLNESS: This 51-year-old female patient presents to the emergency department, ambulatory, complaining of pain in the low back which began 6 months ago. Patient reports a lumbar strain and bulging disc at L4/L5. She has been having ongoing pain since this time. The patient is being seen by Dr. Kamara. The patient states yesterday she was sitting in a lower position , and when she attempted to sit, the pain became worse. She states throughout the day the pain has been ongoing. She has been taking ibuprofen 800 mg every 5 hours. She has been using heat and ice. The patient was previously through physical therapy, and states she recently stopped. She was directed to be seen by pain management, but does not have an appointment until the end of the month. She states she has been hesitant to go to pain management, because "I just want the pain to leave". The patient states Dr. Kamara has not performed any further imaging, however recommended more conservative management at this time. The pain was gradual in onset, is now constant and worse with movement. The patient notes the pain as sharp and a 5/10. The patient denies any loss of control of their bowel or bladder functions. There has been no leg numbness or weakness, and no change in sensation. No nausea or vomiting or abdominal pain. No chest pain or shortness of breath. The patient has not had prior back injuries. No dysuria or increased urinary frequency. REVIEW OF SYSTEMS: A review of systems was performed with positives and pertinent negatives listed in the history of present illness. All other systems were reviewed and are negative. ALLERGIES: Molds and smuts, ragweed MEDICATIONS: Ibuprofen PMH: None SOCIAL HISTORY: The patient lives locally with family. She denies drug, alcohol, tobacco use. PHYSICAL EXAM: VITALS: Vitals are noted on the nurse's note and reviewed by myself. Vital signs stable. GENERAL: This is a 51-year-old female, in no acute distress, nondiaphoretic, well-developed well-nourished. SKIN: The skin was without rashes, erythema, edema, or bruising. Capillary refill less than 2 seconds. NECK: Supple without nuchal rigidity. No cervical spine tenderness. No paraspinous muscle tenderness. HEART: Regular rate and rhythm without murmurs gallops or rubs. LUNGS: Clear to auscultation bilaterally without wheezes, rales or rhonchi. ABDOMEN: Positive bowel sounds x 4. Normal tympanic percussion. Soft, nontender, without masses or organomegaly. David sign negative. MUSCULOSKELETAL: No muscle atrophy, erythema, or edema noted of the back. There is no tenderness over the lumbar spinous processes. There is moderate tenderness over the paraspinous muscles bilaterally. There is no tenderness over the thoracic spine or paraspinous muscles. There are no muscle spasms present. The patient is slow to move around with maximum tenderness with any position changes. Positive bilateral straight leg raise test. NEURO: Patient was alert and oriented to person place and time. Normal sensation to light and sharp touch. Deep tendon reflexes 2+ in the lower extremities. Dorsalis pedis pulse 2+ bilaterally. Strength 5/5 and equal in the bilateral lower extremities. EMERGENCY DEPARTMENT COURSE: The patient was seen and evaluated as above. She was given a Lidoderm patch, 1 dose of Percocet, and IM Toradol. She was reassessed and is feeling much better. The patient did request repeat x-rays, however there was no new injury and the pain is consistent with pain she has been experiencing for the past 6 months, so I do not feel that repeat x-rays is warranted at this time. I discussed this with the patient and she verbalized understanding and agreement. The patient will be discharged home on a steroid taper. She was encouraged to follow-up closely with Dr. Kamara. All questions answered to the patient and her satisfaction. Discharge instructions reviewed, patient was discharged home in good condition. I attest that I have personally reviewed the patient's current medication list. Patient was found to have normal blood pressure on screening and does not require follow-up. Etiologies such as lumbago, sciatica, cauda equina, epidural abscess, osteomyelitis, fracture, aortic disease, metastatic disease, infection, renal colic, gastrointestinal, as well as others were entertained. DIAGNOSIS: Lumbar strain The chart was completed utilizing [employer] voice recognition software. Grammatical errors, random word insertions, pronoun errors, and incomplete sentences are an occasional consequence of this system due to software limitations, ambient noise, and hardware issues. Any formal questions or concerns about the content, text, or information contained within the body of this dictation should be directly addressed to the provider for clarification. Problem List Medical Problems: (1) Abdominal pain Status: Resolved (2) Anemia Status: Resolved (3) Anxiety State Nos Status: Chronic (4) Cholelithiases Status: Resolved (5) Contusion of leg Status: Resolved (6) COPD (chronic obstructive pulmonary disease) Status: Chronic (7) COPD exacerbation Status: Resolved (8) COPD exacerbation Status: Resolved (9) Esophageal Reflux Status: Chronic (10) Headache Status: Resolved (11) Hypertension Nos Status: Chronic (12) Hypokalemia Status: Resolved (13) Hypomagnesemia Status: Resolved (14) Left sided abdominal pain Status: Resolved (15) Leiomyoma of uterus Status: Resolved (16) Menorrhagia Status: Resolved (17) Migraine Unspecified W/O Intractable Migraine Status: Chronic (18) Spontaneous bruising Status: Resolved Surgical Problems: (1) Hiatal hernia Status: Resolved (2) Tubal Ligation Status Status: Resolved Current/Historical Medications Scheduled Losartan Potassium (Losartan Potassium), 50 MG PO DAILY Metoprolol Succinate (Metoprolol Succinate ER), 50 MG PO DAILY Prednisone (Prednisone), 0 PO DAILY Sertraline HCl (Sertraline HCl), 50 MG PO DAILY Triamterene/Hctz (Dyazide 37.5MG/25MG), 1 TAB PO DAILY Allergies Coded Allergies: Molds & Smuts (Verified Allergy, Unknown, "+ SKIN TEST", 07/17/17) Ragweed (Verified Allergy, Unknown, TAKES ALLERGY SHOTS, 07/17/17) Vital Signs Date Time Temp Pulse Resp B/P (MAP) Pulse Ox O2 Delivery O2 Flow Rate FiO2 07/17/17 22:58 70 18 130/87 99 07/17/17 20:46 36.6 74 18 135/87 99 Room Air Medications Administered Medications (Trade) Dose Ordered Sig/Robinson Route Start Time Stop Time Status Last Admin Dose Admin Lidocaine (Lidoderm Patch 5%) 1 patch NOW STAT TD 07/17/17 21:32 07/17/17 21:34 DC 07/17/17 21:49 1 PATCH Oxycodone/ Acetaminophen (Percocet 5-325mg Tab) 1 tab NOW STAT PO 07/17/17 21:32 07/17/17 21:34 DC 07/17/17 21:48 1 TAB Ketorolac Tromethamine (Toradol Inj) 60 mg NOW STAT IM 5/13/18 21:32 07/17/17 21:34 DC 07/17/17 21:48 60 MG Departure Information Impression Primary Impression: Strain of lumbar region Dispostion Home / Self-Care Condition GOOD Prescriptions Prednisone (Prednisone) 20 Mg Tab 0 PO DAILY, #18 TAB 3 DAILY FOR 3 DAYS, THEN 2 DAILY FOR 3 DAYS, THEN 1 DAILY FOR 3 DAYS. Prov: Matilde Alfaro PA-C 07/17/17 Referrals Walter Sutton M.D. (PCP) Williams Kamara, DO Patient Instructions ED Low Back Pain Injury, My [facility] Additional Instructions You have been treated in the Emergency Department for Back Pain. You have been prescribed Prednisone. This is a steroid which will help decrease your inflammation, redness, and itch. Take this medicine as prescribed. Take the ENTIRE 9 day course. It is best to take steroids early in the morning as PM dosing can affect your sleeping patterns. No NSAIDs while taking steroids. For pain control, you can use the following [id number] medicines (if >12 yo): Ibuprofen(Motrin, Advil) may be used for fever or pain. Use 600mg every six hours as needed. Take with food. Avoid using more than 2400mg in a 24 hour period. Do not use 2400mg per day for more than three consecutive days without physician direction. Prolonged inappropriate use can lead to stomach upset or ulcers. No NSAIDs while taking steroids. (AND/OR) Acetaminophen(Tylenol) may be used for fever or pain. Use 1000mg every six hours as needed. Avoid using more than 3000mg in a 24 hour period. If this is an acute injury, ice can be applied to the area of pain for the first 3 days to help decrease pain and inflammation. After the first 3 days, a heating pad can be used over the area for continued soothing relief. You should schedule a follow-up appointment in 2-3 days with your Primary Care Provider and spine surgeon for further evaluation and treatment of your back pain. Return to the Emergency Department if your current symptoms worsen despite treatment course outlined above, or if you develop any of the following symptoms : intractable pain despite aforementioned treatment course, loss of control of your bowel or bladder, numbness or tingling in your groin, or development of a fever. Problem Qualifiers Primary Impression: Strain of lumbar region Encounter type: subsequent encounter Qualified Codes: S39.012D - Strain of muscle, fascia and tendon of lower back, subsequent encounter
[2017-07-17 22:58] VITALS: BP 130/87; PULSE 70; O2SAT 99
== END 2017-07-17 22:59 | disposition home or self-care (01) ==
LOC: C.EDB 20:44 → C.EDD 22:59
DX: S39.012D Strain of muscle, fascia and tendon of lower back, subsequent encounter (principal); X58.XXXD Exposure to other specified factors, subsequent encounter; J44.9 Chronic obstructive pulmonary disease, unspecified; I10 Essential (primary) hypertension; Y99.0 Civilian activity done for income or pay

== ENCOUNTER → 2017-10-12 | Day surgery (SDC) | payer OTHER, BC ==
[2017-10-07 12:22] VITALS: Ht 170.2 cm; Wt 90.9 kg
[~2017-10-12] VITALS: Ht 170.2 cm; Wt 90.9 kg
[~2017-10-12] MED LIST changes: -ACET-1311 PO; +CZR50 PO; +IBUP-1428 PO; -IBUP-1451 PO; +IOPAMIDOL INJ 61% 15 ML VIAL ONE; -LIDO1PAD2 TD; +LIDOCAINE HCL 1% MPF 5 ML VIAL ONE; -OXYC-57 PO; +SODIUM CHLORIDE 0.9% INJ 10 ML VIAL ONE; +TPRSR/50 PO; +VNTHFA/IN INH; +WLC625 PO
--- NOTE | 2017-10-12 14:19 | History & Physical Bridge - SC ---
H&P Re-Evaluation Bridge Note: I have examined the patient, reviewed the History & Physical and in the interval since the performance of the History & Physical I have noted the following changes of clinical significance: No changes noted
--- NOTE | 2017-10-12 14:40 | [facility] Post Operative Brief Note ---
Immediate Operative Summary Operative Date Oct 12, 2017. Pre-Operative Diagnosis L5-S1 HNP WITH BILATERAL RIGHT GREATER THAN LEFT RADICULOPATHIES Post-Operative Diagnosis SAME Procedure(s) Performed LUMBAR EPIDURAL STEROID INJECTION Surgeon DR. Edouard GUERIN Dietary Tech Surgeon(s) None Estimated Blood Loss None Findings Consistent with Post-Op Diagnosis Specimens NA Drains None Anesthesia Type Local Disposition Disposition:
--- NOTE | 2017-10-12 14:41 | Discharge Instructions ---
Discharge Instructions Date of Service Oct 12, 2017. Visit Reason for Visit: Radiculopathy, Lumbar Region Discharge Discharge Diagnosis / Problem: Bilateral leg pain Discharge Goals Goal(s): Decrease discomfort, Improve function Medications Stopped Medications Name(s): Ibuprofen Last dose last Tuesday Activity Recommendations Activity Limitations: resume your previous activity Anesthesia . Post Anesthesia Instructions: If you have had General Anesthesia or IV Sedation: * Do not drive today. * Resume driving when surgeon permits. * Do not make important decisions or sign legal documents today. * Call surgeon for: 1. Temperature elevations greater than 101 degrees F. 2. Uncontrollable pain. 3. Excessive bleeding. 4. Persistent nausea and vomiting. 5. Medication intolerance (nausea, vomiting or rash). * For nausea and vomiting use only clear liquids such as: tea, soda, bouillon until nausea subsides, then gradually increase diet as tolerated. * If you have any concerns or questions, call your surgeon's office. If physician is unavailable and it is an emergency, call 911 or go to the nearest emergency room. . Diet Recommendations Recommended Home Diet: resume previous diet Procedures Procedures Performed: LUMBAR EPIDURAL STEROID INJECTION Pending Studies Studies pending at discharge: no Medical Emergencies . Who to Call and When: Medical Emergencies: If at any time you feel your situation is an emergency, please call 911 immediately. . Non-Emergent Contact Non-Emergency issues call your: Specialist . . "Provider Documentation" section prepared by Franklin Zhu. .
[2017-10-12 14:43] VITALS: TEMP 36.3
[2017-10-12 15:09] VITALS: BP 156/95; PULSE 69; O2SAT 98
--- NOTE | 2017-10-12 15:51 | OPERATIVE REPORT ---
DATE OF OPERATION: 10/12/2017 PREOPERATIVE DIAGNOSIS: L5-S1 herniated nucleus pulposus with bilateral right greater than left lower extremity radiculopathy. POSTOPERATIVE DIAGNOSIS: L5-S1 herniated nucleus pulposus with bilateral right greater than left lower extremity radiculopathy. PROCEDURE: Right paramedian L5-S1 intralaminar epidural steroid injection under fluoroscopic guidance. INDICATIONS: The patient is a 52-year-old female who presents today for an epidural injection. She has had low back pain since March when she fell at work. MRI revealed a disc desiccation at L4-L5 with an L5-S1 annular tear with an extruded fragment caudal to this level. She presents today for an epidural as she has failed conservative treatment for the better part of 6 months. PHYSICAL EXAMINATION: Pleasant female who is very sensitive to light touch in the back. She has no focal weakness of her lower extremities with pain inhibition with straight leg testing of her right lower extremity. She has hypersensitivity to touch the legs bilaterally, right worse than the left. CONSENT: Verbal and written consent was obtained from the patient. Risks and benefits were reviewed. Risks include but are not limited to epidural abscess, epidural hematoma, allergic reaction, dural puncture. The patient wishes to proceed. DESCRIPTION OF PROCEDURE: The patient was taken back to the special procedures room of [facility]. She was maintained in a prone position. Backside was cleansed with Betadine x3 and a dry sterile dressing was applied. Fluoroscope was used to identify the L5-S1 intralaminar space. Overlying skin on the right side was anesthetized with 4 mL of lidocaine 1% with a 25-gauge 1.5-inch needle. A 22-gauge 3.5-inch Tuohy needle was then directed down towards the intralaminar space. It was advanced under lateral fluoroscopic guidance and became need to inject with an additional mL of lidocaine and got into the deeper tissues. It also became apparent that it would not reach the site. This was changed out for 4-1/4 inch Tuohy needle 22-gauge, which then was advanced until almost 12 cm when loss of resistance was noted. Isovue-300 contrast 1 mL was injected in which demonstrated an epidural uptake pattern. She then underwent injection after negative aspiration of 40 mg Depo-Medrol, 4 mL of preservative-free sodium chloride. Injection was fairly well tolerated and reproduced a familiar transient pressure feeling in the leg. DISPOSITION: 1. The patient is taken out into the discharge recovery area where she will be discharged home once discharge criteria have been met. 2. Follow up in the [facility] office in 4 weeks' time. I attest to the content of the Intraoperative Record and any orders documented therein. Any exception s are noted below.
== END | disposition home or self-care (01) ==
LOC: X.SURG 13:27
PROVIDERS: ATTEND Physical Medicine & Rehabilitation
DX: M51.17 Intervertebral disc disorders with radiculopathy, lumbosacral region (principal); I10 Essential (primary) hypertension